=== PATIENT | female | born 1995 | race Caucasian/White ===

== ENCOUNTER 2025-07-05 21:39 | Emergency (ER) | payer MEDICAID, SELFPAY ==
[2025-07-05] VITALS (15 sets, daily range): BP systolic 114–143; BP diastolic 63–95; PULSE 67–81; RESP 16; TEMP 36.6; O2SAT 93–100
--- NOTE | 2025-07-05 22:03 | ED.GENADUL_ITS ---
Discharge Plan Discharge Details Chief Complaint: DrugWithdr/MAT ED Provider: Herberth Burch Meds and New Rx's Prescriptions: No Action Unable to Obtain HPI General Mode of arrival: EMS . Date/Time Provider Initiated Documentation: 07/05/25 22:03 . Limitations to Documentation: no limitations . Information obtained by: patient and RN notes reviewed . HPI Narrative: Patient presents to the ED by ambulance requesting help getting back into [facility] for drug rehab. Patient had been admitted there Sunday of this week. She impulsively signed out AMA yesterday. She is realizing now that she should have stayed and cannot manage this by herself. She has drug addiction to cocaine which she did use today. She did not feel safe in the environment she was at and called EMS. She was transported here and is looking to get back into [facility]. She denies any thoughts of self-harm or suicidal ideation. She has no physical complaints. Her drug of choice is cocaine. Denies alcohol. Denies other drugs. Related Data Home Medications Medication Instructions Recorded Confirmed Unknown [Unable to Obtain] 07/06/25 General Stated Complaint: DrugWithdr/MAT ANAYELI: 2 Exam Narrative Exam Narrative: Const: WDWN female in NAD. VS per triage. HEENT: NC/AT. Normal facial exam. Neck: Supple. Trachea midline. Lungs: Normal respiratory effort. Lungs are clear. Cor: RRR without murmur. Good radial pulses. Neuro: A+O x 3. Normal speech, mentation, gait. Cranial nerves II - XII grossly intact. No gross motor or sensory deficit. Psych: Denies SI/HI. Course Vital Signs Vital signs: Vital Signs Temperature 97.8 F 07/05/25 21:40 Pulse 78 07/05/25 21:40 Respiratory Rate 16 07/05/25 21:40 Blood Pressure 143/94 H 07/05/25 21:40 Pulse Oximetry 98 07/05/25 21:40 Temperature 97.8 F 07/05/25 21:40 Temperature Source Oral 07/05/25 21:40 Pulse 78 07/05/25 21:40 Respiratory Rate 16 07/05/25 21:40 Respiratory Pattern Normal 07/05/25 21:49 Blood Pressure 143/94 H 07/05/25 21:40 Blood Pressure Position Sitting 07/05/25 21:40 Pulse Oximetry 98 07/05/25 21:40 Oxygen Delivery Method Room Air 07/05/25 21:40 Oxygen Flow Rate 0 07/05/25 21:40 Pain Level 0 07/05/25 21:40 Medical Decision Making Patient presenting to ED with request for help to get back into [facility] for drug rehab. She signed out of there AMA this weekend on an impulse. Realizes she cannot do it by herself and needs help. Did use cocaine today. Denies SI/HI. Denies physical complaint. Will see if instructional coach available. If not will engage with [facility]. transition coach not available. [facility] reports not providing drug rehabilitation referrals only mental health evaluations. They recommend patient calling 211. Patient encouraged to do so. She also called [facility] back. She became very upset and felt that we were degrading her. Patient herself was being rude and swearing at nursing. Eventually, able to calm back down. Reports being cold, tired, hungry and just needs to rest. Given lack of resources available to her at this time as well as the temperature/weather outside will re-evaluate situation in the morning. Will ask for instructional coach consult this morning. Quality:SDOH Health Related Social Needs: 2 Health related social needs risk of homeless food inse curity transpo insecurity material hardship house/econ circumstance finding work daily activities lonely/isolated Health related social needs details Needs safe housing and resources to obtain food. [facility] Medical History Mental health disorder Surgical History No significant past surgical history Social History Smoking/Tobacco Use Status: Current every day Tobacco Type: e-cigarettes Smoking risk assessment performed?: Yes Alcohol Intake: former Drug use: Daily Substance use type: marijuana and crack/cocaine Housing: homeless Do you feel safe at home: No
--- NOTE | 2025-07-06 07:22 | W.EDPROG ---
Date of service: 07/06/25 Time of Service: 07:22 Medical Decision Making I received signout on this 29-year-old female coming from local rehabilitation facility where she left AMA. She had been at the facility for cocaine use. She used cocaine yesterday. 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 She is on outpatient Suboxone. 9:30 AM Patient awake alert tolerating p.o. I met with the patient. She was being called to get back to evaluate yesterday. I ordered her home medications which have been verified by nursing. Will discharge her. Urine test negative. Quality:SDOH Health Related Social Needs: Health related social needs risk of homeless food insecurity transpo insecurity material hardship house/econ circumstance finding work daily activities lonely/isolated Health related social needs details Needs safe housing and resources to obtain food. Discharge Plan Disposition Patient Disposition: Home Discharge Details Clinical Impression: Encounter for medical screening examination [facility] Provider: Moe Issa Home Meds and New Rx's Prescriptions: Continued buprenorphine-naloxone [Suboxone] 4-1 mg film 1 film sublingual DAILY sertraline [Zoloft] 100 mg tablet 100 mg PO DAILY topiramate [Topamax] 200 mg tablet 200 mg PO DAILY Discharge Instructions Additional Instructions: You were seen in the emergency department for your medical screening. As we discussed if you do not feel safe or if you have any concerns please return to the emergency department. Otherwise Best wishes continuing your rehab at [facility]. Stand Alone Forms: Portal Information
[2025-07-06 08:02] VITALS: BP 105/80; PULSE 74; RESP 16; O2SAT 100
--- NOTE | 2025-07-06 09:24 | NUR.NOTE ---
Nursing Note: Care management referral in place by . Spoke w/Mold Carpenter Lynsey who states there is no resources and she does not need to come down to see her. Will refer to [facility] upon discharge
[2025-07-06 09:40] LABS: Cannabinoids THC Positive (Negative)
[2025-07-06] MEDS: Sertraline 100 MG TAB PO (09:51)
[2025-07-06] MEDS: Topiramate 100 MG TAB 200 MG PO (09:52)
[2025-07-06 09:55] VITALS: BP 108/76; PULSE 55; RESP 16; O2SAT 97
== END 2025-07-06 09:57 | disposition home or self-care (01) ==
PROVIDERS: Emergency Medicine; Emergency Provider Emergency Medicine
DX: F14.90 Cocaine use, unspecified, uncomplicated (principal); Z59.41 Food insecurity; Z59.811 Housing instability, housed, with risk of homelessness; Z59.82 Transportation insecurity; Z59.89 Other problems related to housing and economic circumstances; Z60.8 Other problems related to social environment; Z13.39 Encounter for screening examination for other mental health and behavioral disorders
CPT/HCPCS: 99284; 99285; 81025; 00123; 80307